=== PATIENT | female | born 1940 | race African-American/Black ===

== ENCOUNTER 2017-02-13 11:37 | Emergency (ER) | payer OTHER ==
[~2017-02-13] VITALS: Ht 162.6 cm; Wt 74.8 kg
[~2017-02-13 11:37] MED LIST: CYMBALTA30 MG PO; MIRALAX17 GM PO; NEURONTIN 300300 M1 PO; NORCO 5-325 TA1 EACH PO; NORVASC2.5 MG PO; PRILOSEC 10MG C10 M1 PO; TOPROL XL100 MG PO; TOPROL XL25 MG PO; VITAMIN D400 UNIT PO; VITAMINC500 PO
[2017-02-13 12:52] LABS: URINE BILIRUBIN NEGATIVE (Negative); URINE BLOOD 2+ (Negative); URINE COLOR YELLOW; URINE GLUCOSE-RANDOM* NEGATIVE (Negative); URINE KETONES 1+ (Negative); URINE LEUKOCYTES-REFLEX NEGATIVE (Negative); URINE PROTEIN (DIPSTICK) TRACE (Negative); URINE UROBILINOGEN 0.2 E.U./dl (0.2-1.0)
[2017-02-13 13:01] LABS: SQUAMOUS 4-10 Moderate /LPF (0-3)
[2017-02-13 13:02] LABS: CASTS None Seen /LPF (None Seen); CRYSTALS None Seen /LPF (None Seen); URINE RBC 0-2 Rare /HPF (0-2); URINE WBC-REFLEX 0-5 Rare /HPF (0-5)
[2017-02-13 14:00] LABS: HEMATOCRIT 37.5 % (37.0-47.0); HEMOGLOBIN 12.5 gm/dL (12.0-15.0); MCH 28.2 pg (26.0-34.0); MCHC 33.4 g/dL (28.0-37.0); MCV 84.3 fL (80.0-100.0); PLATELET COUNT 147 thou/uL (150-400); RBC 4.44 mil/uL (4.20-5.00); RDW 14.1 % (10.5-14.5)
[2017-02-13 14:01] LABS: MANUAL DIFF YES
[2017-02-13 14:13] LABS: ALBUMIN 3.2 g/dL (3.4-5.0); CALCIUM 8.8 mg/dL (8.5-10.1); CREATININE 1.1 mg/dL (0.6-1.0); POTASSIUM 3.4 mmol/L (3.5-5.1); TOTAL BILIRUBIN 0.8 mg/dL (<0.1-1.0); TOTAL PROTEIN 7.8 g/dL (6.4-8.2)
[2017-02-13 14:23] LABS: ABSOLUTE NEUTROPHILS 9.6 thou/uL (1.4-8.2); TOTAL CELL COUNT 100
[2017-02-13] MEDS ORDERED: SENOKOT-S1 TA1 PO (14:33)
[2017-02-13] MEDS ORDERED: KEFLEX500 MG PO (14:47)
== END 2017-02-13 15:12 ==
LOC: ER 11:37
PROVIDERS: Physician Assistant
DX: B34.9 Viral infection, unspecified (principal); N39.0 Urinary tract infection, site not specified; I10 Essential (primary) hypertension; E78.5 Hyperlipidemia, unspecified; Z90.710 Acquired absence of both cervix and uterus; Z90.49 Acquired absence of other specified parts of digestive tract; Z98.890 Other specified postprocedural states; Z88.5 Allergy status to narcotic agent; F17.210 Nicotine dependence, cigarettes, uncomplicated

== ENCOUNTER 2017-06-25 15:05 | Emergency (ER) | payer OTHER ==
[~2017-06-25] VITALS: Ht 165.1 cm; Wt 70.3 kg
[~2017-06-25 15:05] MED LIST changes: +KEFLEX500 MG PO; +SENOKOT-S1 TA1 PO
[2017-06-25] MEDS ORDERED: ZYRTEC10 M2 PO (15:52)
[2017-06-25] MEDS ORDERED: PREDNISONE 20 M20 MG PO (15:52)
== END 2017-06-25 16:22 | disposition home or self-care (01) ==
LOC: ER 15:05
DX: S00.86XA Insect bite (nonvenomous) of other part of head, initial encounter (principal); S60.561A Insect bite (nonvenomous) of right hand, initial encounter; S60.562A Insect bite (nonvenomous) of left hand, initial encounter; I10 Essential (primary) hypertension; E78.00 Pure hypercholesterolemia, unspecified; Z90.49 Acquired absence of other specified parts of digestive tract; Z90.710 Acquired absence of both cervix and uterus; Z98.890 Other specified postprocedural states; Z87.891 Personal history of nicotine dependence; Z88.5 Allergy status to narcotic agent; W57.XXXA Bitten or stung by nonvenomous insect and other nonvenomous arthropods, initial encounter; Y93.89 Activity, other specified; Y92.89 Other specified places as the place of occurrence of the external cause; Y99.8 Other external cause status

== ENCOUNTER 2019-06-28 12:12 | Inpatient (IN) | payer OTHER ==
[~2019-06-28] VITALS: Ht 162.6 cm; Wt 75.7 kg
[~2019-06-28 12:12] MED LIST changes: +AZITHROMYCIN 2250 MG PO; +NORCO 10-325 T1 EACH; +PREDNISONE 20 M20 MG PO; +ZYRTEC10 M2 PO
[2019-06-28] MEDS ORDERED: PREMARIN30 GM TOP (14:29)
[2019-06-28] MEDS ORDERED: MACROBID 100 M100 M2 PO (14:38)
[2019-06-28 15:30] VITALS: BP 130/59
[2019-06-28 18:34] LABS: HEMATOCRIT 35.8 % (37.0-47.0); MCH 28.8 pg (26.0-34.0); MCHC 33.5 g/dL (28.0-37.0); MCV 85.9 fL (80.0-100.0); RBC 4.17 mil/uL (4.20-5.00); RDW 14.5 % (10.5-14.5); WBC 9.6 thou/uL (4.0-11.0)
[2019-06-28 18:44] LABS: CALCIUM 9.2 mg/dL (8.5-10.1); POTASSIUM 3.6 mmol/L (3.5-5.1)
--- NOTE | 2019-06-28 19:38 | NUR ---
PT RECEIVED DIRECT FROM HOME TO 427 AT 1315. ORDERS RECEIVED FROM DR. FARRAR. DR. DONOVAN CONSULTED FOR RECURRING ECOLI UTI'S. PT EATING AND DRINKING WELL. NO C/O PAIN. AWARE NEED UA MIDSTREAM. IV TEAM TO INSERT IV PT DIFFICULT STICK.
[2019-06-28 19:42] VITALS: BP 132/71
[2019-06-28 21:27] LABS: URINE BILIRUBIN NEGATIVE (Negative); URINE BLOOD TRACE (Negative); URINE CLARITY CLEAR; URINE COLOR YELLOW; URINE GLUCOSE-RANDOM* NEGATIVE (Negative); URINE KETONES NEGATIVE (Negative); URINE LEUKOCYTES-REFLEX NEGATIVE (Negative); URINE NITRITE-REFLEX NEGATIVE (Negative); URINE PROTEIN (DIPSTICK) NEGATIVE (Negative); URINE SPECIFIC GRAVITY <= 1.005 (1.005-1.035); URINE UROBILINOGEN 0.2 E.U./dl (0.2-1.0)
[2019-06-29 00:01] VITALS: BP 111/54
--- NOTE | 2019-06-29 02:34 | NUR ---
ASSUMED CARE OF PT @1900 PT ASSESSED AT START OF SHIFT. DENIES PAIN, N/V. A&OX4 UP AD MIHIR TO THE BATHROOM. UA COLLECTED AND SPICEMEN SENT TO THE LAB. IV IN LFT FOREARM INTACT AND ABX INFUSING. MEDS GIVEN AND WILL CONTINUE WITH POC TILL EOS
[2019-06-29 03:46] VITALS: BP 100/44
[2019-06-29 07:19] VITALS: BP 111/59
[2019-06-29 11:19] LABS: DIRECT BILIRUBIN < 0.1 mg/dL (<0.1-0.3); SGOT 17 U/L (15-37); SGPT 17 U/L (30-65); TOTAL BILIRUBIN 0.3 mg/dL (<0.1-1.0); TOTAL PROTEIN 7.3 g/dL (6.4-8.2)
--- NOTE | 2019-06-29 14:18 | NUR ---
ASSESSMENT-PT LIVES AT HOME WITH HER . BOTH ARE INDEPENDENT OF ADLS AND AMBULATION AND BOTH DRIVE. PT HAS A DTR IN THE AREA FOR SUPPORT WELL. PT DENIES ANY CONCERNS RELATED TO DC. LAUNDRY IS LOCATED DOWN [address]. IN GOOD HEALTH AND ABLE TO ASSIST PT AT HOME. FOLLOWING TO ASSIST WITH DC PLANNING.
[2019-06-29 16:21] VITALS: BP 134/84
[2019-06-29 19:57] VITALS: BP 132/82
--- NOTE | 2019-06-29 20:12 | NUR ---
ASSUMED CARE OF PATIENT AT 0715, PATIENT ALERT AND ORIENTED X 4. PATIENT UP AD MIHIR. PATIENT C/O PAIN WITH BACK AREA, RECEIVED HYDROCODONE 1 TABLETS, WITH GOOD RELIEF. PATIENT HAS LEFT FOREARM IV, RECEIVED 1 I IV ANTIBIOTIC THIS SHIFT. PATIENT RECEIVED RENAL US AND CXR DUE TO COUGH. SCD'S APPLIED. WILL CONTINUE TO MONITOR.
--- NOTE | 2019-06-29 20:16 | NUR ---
PATIENT ADMITTED FRO OR, ABDOMINAL HYSTERECTOMY, OVARIES REMOVED, LYSIS OF ADHESIONS. C/O PAIN WITH LOWER ABDOMEN AREA AND VAGINA. DILAUDID 1 MG IV GIVEN X 1 THIS SHIFT. LEE CATHETER IN PLACE AND C/O PRESSURE FEELING, DR NOYOLA NOT WANTING D/C UNTIL IN AM. CLEAR LIQUID DIET, BUT PATIENT REFUSED ONLY ANTED WATER. PATIENT HAS LEFT FOREARM IV IN PLACE. POST OP VITALS DONE, HR-BRADYCARDIA SINCE SURGERY. IV ANTIBIOTICS GIVEN IN OR. WILL CONTINUE TO MONITOR. ADMISSION DUNE EXCEPT CAREPLAN, NIKKY/RN WILL DO CAREPLAN. WILL CONTINUE TO MONITOR.
--- NOTE | 2019-06-30 05:25 | NUR ---
ASSUMED CARE OF PT @1900 PT ASSESSED AT START OF SHIFT DENIES PAIN. EVENING MEDS GIVEN AND ABX INFUSING. UP AD MIHIR TO THE BATHROOM. CALL LIGHT IN PLACE AND WILL CONTINUE POC TILL EOS.
[2019-06-30 08:28] VITALS: BP 117/77
--- NOTE | 2019-06-30 11:59 | H ---
[facility] [place] [address] HISTORY AND PHYSICAL Name: EMMANUEL MOTA Room #: 427-P ADM IN M.R.#: [id number] Admission: 06/28/19 Attend Phys: Mai Farris Discharge: Date of : 42 Report #: [id number] THIS REPORT FOR: //name// CC: Venkatesh Mancuso Lia DATE OF SERVICE: 06/28/2019 CHIEF COMPLAINT: Weakness. HISTORY OF PRESENT ILLNESS: The patient is a 79-year-old female who was admitted through the office with a report of recent urinary tract infection. She has gradually grown weak with some loss of appetite over the last several days. Urinalysis and culture through the office have revealed resistant E. coli. She has failed oral antibiotics due to the resistance pattern and has been admitted for IV antibiotic therapy. PAST MEDICAL HISTORY: Hypertension, chronic back pain, arthritis. PAST SURGICAL HISTORY: None. FAMILY HISTORY: Noncontributory. SOCIAL HISTORY: She is , lives at home. No chronic alcohol or tobacco use. ALLERGIES: CODEINE. MEDICATIONS: Seroquel, Protonix, Norvasc, metoprolol, Claritin, hydrocodone, gabapentin, duloxetine, vitamin D, Premarin vaginal cream. REVIEW OF SYSTEMS: Denies headache, chest pain, shortness of breath, abdominal pain, nausea, vomiting, diarrhea, constipation, dysuria, syncope. OBJECTIVE: VITAL SIGNS: T-max was 37.6, pulse 86, respirations 18, blood pressure 111/59, O2 sat 90-93% on room air. GENERAL: She is awake and alert, in no distress. LUNGS: Clear. HEART: Regular. ABDOMEN: Soft, normoactive bowel sounds. EXTREMITIES: No edema. NEUROLOGIC: Intact and unremarkable. LABORATORY DATA: Urinalysis had trace blood. White count was 9.6. Chemistry unremarkable. Albumin was 3. [facility] [address] [place] [address] HISTORY AND PHYSICAL Name: EMMANUEL MOTA Room #: 427-P [facility]#: [id number] Admission: 06/28/19 Attend Phys: Mai Farris Discharge: Date of : 42 Report #: [id number] ASSESSMENT: 1. Complicated urinary tract infection with resistant Escherichia coli. 2. Hypertension. 3. Osteoarthritis. 4. Mild protein-calorie malnutrition. PLAN: IV antibiotics will continue, pending repeat culture. Dr. Yao Weaver has assessed her and reviewed the outside the hospital data for continued treatment plan. Renal ultrasound to rule out structural lesion and urinary residuals has been ordered. <ELECTRONICALLY SIGNED> By: Kaden Ring MD 06/30/19 1159 [id number] 1227 Kaden Ring MD /nt
[2019-06-30 14:01] VITALS: BP 117/77
--- NOTE | 2019-06-30 19:39 | HC ---
[facility] [place] [address] CONSULTATION Name: EMMANUEL MOTA Room #: 427-P [facility] M.R.#: [id number] Admission: 06/28/19 Attend Phys: Mai Farris Discharge: 06/30/19 Date of : 42 Report #: [id number] THIS REPORT FOR: //name// CC: Venkatesh Mancuso Lia DATE OF SERVICE: 06/29/2019 INFECTIOUS DISEASES CONSULTATION REASON FOR CONSULTATION: I was asked to evaluate concerning recurrent cystitis and resistant gram-negative infection. HISTORY OF PRESENT ILLNESS: The patient is a 79-year-old with history of recurrent cystitis. She has been on multiple antibiotics over the last several months without improvement. She denies any dysuria, frequency, hematuria, pelvic pain or flank pain. She has had intermittent low-grade fever up to 99 degrees. No chills or sweats. Her main complaint has been generalized weakness with diffuse pain. She has episodes of cough with brown sputum production without hemoptysis or pleuritis. She has occasional palpitations. She reports abdominal discomfort frequently with some reflux symptoms along with intermittent diarrhea. She will occasionally have vomiting episodes. She has had no blood in her stool. She has previously been treated for uterine prolapse. She now has post-hysterectomy. She has had no vaginal prolapse. She has had no rectal prolapse. She has been seen by Urology and Gynecology without further recommendations. She could not give me the specific details of their evaluation. She reports intermittent episodes of knee swelling. No rashes or decubiti noted. Does have occasional ankle edema. She is a previous smoker, having quit approximately 10 years ago. She notices chronic low back pain. She could not describe specific radicular features with consistency. She was a bit vague on the description of her back pain. No report of diabetes. REVIEW OF SYSTEMS: Full 10-point review of systems was negative other than what is described above. PAST MEDICAL HISTORY: Peripheral neuropathy, osteoarthritis, hemorrhoids, hysterectomy, hemorrhoidectomy, cholecystectomy, repair of prolapsed uterus. ALLERGIES: CODEINE and she reports PENICILLIN with nausea. MEDICATIONS: As noted on her MAR, now on meropenem. She could not recall the oral antibiotics she was on leading up to this hospital stay. FAMILY HISTORY: Noncontributory other than coronary artery disease. SOCIAL HISTORY: She is , has 2 children. Past smoker, no significant [address] [address] CONSULTATION Name: EMMANUEL MOTA Room #: 427-P [facility] IN M.R.#: [id number] Admission: 06/28/19 Attend Phys: Mai Farris Discharge: 06/30/19 Date of : 42 Report #: [id number] alcohol intake. 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 PHYSICAL EXAMINATION: GENERAL: She is alert and cooperative. She was ambulatory. She was standing up in her room, in no distress. VITAL SIGNS: Afebrile and hemodynamically stable. SKIN: Without rash or decubitus. No palpable adenopathy. HEENT: Eyes without scleral icterus. Pupils are equal, round and reactive to light. Mouth without mucositis. She had upper dentures. NECK: Supple, with no thyromegaly or mass. LUNGS: Clear, without adventitial sounds. She did have very loose bronchitic type cough. HEART: Regular, without murmur, gallop or rub. ABDOMEN: Soft, nontender. No hepatosplenomegaly or mass appreciated. Mild obesity. GENITORECTAL: Not performed. EXTREMITIES: Without peripheral edema. No clubbing or cyanosis. She had mild changes of degenerative arthritis. NEUROLOGIC: Cranial nerves intact. Strength in upper and lower extremities was normal. Sensation intact. Mood was appropriate normal. LABORATORY STUDIES: Urinalysis was unremarkable. Sodium 140, potassium 3.6, bicarbonate 29, creatinine 1. Hemoglobin 12, WBC 9.6 and platelet count 202,000. IMPRESSION: A 79-year-old with generalized fatigue and sense of weakness with multisystem complaints. In addition, she has had recurring episodes of cystitis, now drug-resistant organisms. She has been seen by Urology and Gynecology. She does report a history of atrophic vaginitis that is now treated with topical estrogen. Unclear if she has emptying issues. I doubt this explains all of her generalized weakness and disability. We would also check for other inflammatory condition. Unclear as to her workup in the outpatient setting. She does have evidence of bronchitis. RECOMMENDATIONS: We will check chest x-ray, sputum culture, inflammatory markers. Check postvoid residual to ensure she is emptying her bladder well. Continue with hormonal vaginal cream. We will continue her current antibiotic program pending further studies. <ELECTRONICALLY SIGNED> By: Yao Weaver MD 06/30/19 [id number] Yao Weaver MD /nt
[2019-07-01 16:06] LABS: ANA INTERPRETATION Negative (Negative)
== END 2019-06-30 17:31 | disposition home or self-care (01) | DRG 690 ==
LOC: 4E 12:12 → ENTRNSPT 06-30 14:15 → EDTRNSPTSTS 06-30 14:18 → 4E 06-30 17:31
PROVIDERS: Specialist; ADMIT Internal Medicine
DX: N30.90 Cystitis, unspecified without hematuria (principal); E44.1 Mild protein-calorie malnutrition; B34.9 Viral infection, unspecified; M19.90 Unspecified osteoarthritis, unspecified site; I10 Essential (primary) hypertension; J40 Bronchitis, not specified as acute or chronic; G62.9 Polyneuropathy, unspecified; G89.29 Other chronic pain; M54.9 Dorsalgia, unspecified; Z90.49 Acquired absence of other specified parts of digestive tract; Z90.710 Acquired absence of both cervix and uterus; Z88.5 Allergy status to narcotic agent; Z88.0 Allergy status to penicillin; Z82.49 Family history of ischemic heart disease and other diseases of the circulatory system; Z68.28 Body mass index [BMI] 28.0-28.9, adult
CPT/HCPCS: 10783

== ENCOUNTER → 2020-10-02 | Outpatient (CLI) | payer OTHER ==
[~2020-10-02] MED LIST changes: +MACROBID 100 M100 M2 PO; +PREMARIN30 GM TOP
== END ==
LOC: MRI 07:23
DX: M47.816 Spondylosis without myelopathy or radiculopathy, lumbar region (principal); M51.37 Other intervertebral disc degeneration, lumbosacral region; M54.41 Lumbago with sciatica, right side; M54.42 Lumbago with sciatica, left side; G89.29 Other chronic pain

== ENCOUNTER 2021-10-18 13:11 | Emergency (ER) | payer OTHER ==
[~2021-10-18] VITALS: Ht 162.6 cm; Wt 74.8 kg
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
[2021-10-18 14:54] LABS: ABSOLUTE NEUTROPHILS 7.7 thou/uL (1.4-8.2); BASOPHILS 0.5 % (0.0-2.0); EOSINOPHILS 0.8 % (0.0-3.0); HEMOGLOBIN 12.2 gm/dL (12.0-15.0); MCH 29.9 pg (26.0-34.0); MONOCYTES 7.6 % (1.0-8.0); PLATELET COUNT 228 thou/uL (150-400); POLYS 80.1 % (36.0-66.0); RBC 4.09 mil/uL (4.20-5.00); RDW 15.1 % (10.5-14.5); WBC 9.6 thou/uL (4.0-11.0)
--- NOTE | 2021-10-18 14:56 | EKG ---
[place] [address] [facility] [place] [address] ELECTROCARDIOGRAM REPORT Name: EMMANUEL MOTA Room #: REG Clarissa#: [id number] Admission: 10/18/21 Attend Phys: Discharge: Date of : 41 Report #: [id number] [facility] ED Test Date: 2021-10-18 Test Time: 13:22:41 Pat Name: EMMANUEL MOTA Department: Room: Gender: F Federal Aid Coordinator: Ailyn ROMERO : 1940 Requested By: Elia Guerrero Order Number: [id number] MD: Behzad Huston Measurements Intervals [place] Rate: 85 P: 12 WV: 190 QRS: -23 QRSD: 91 T: 50 QT: 351 QTc: 418 Interpretive Statements Sinus rhythm Probable left atrial enlargement Borderline left axis deviation Minimal ST depression Compared to ECG 07/18/2018 18:28:10 No significant change Electronically Signed On 10-18-2021 14:56:40 SHELL PRESS OPERATOR by Behzad Huston [email or web address] <ELECTRONICALLY SIGNED> By: Behzad Huston MD, [facility] 10/18/21 1456 1322 1322 Behzad Huston MD, FACC /EPI
[2021-10-18 15:04] LABS: CALCIUM 8.9 mg/dL (8.5-10.1); CREATININE 0.9 mg/dL (0.6-1.0); POTASSIUM 3.4 mmol/L (3.5-5.1)
[2021-10-18 15:14] LABS: ALBUMIN 3.3 g/dL (3.4-5.0); TOTAL BILIRUBIN 0.4 mg/dL (0.2-1.0); TOTAL PROTEIN 7.3 g/dL (6.4-8.2)
[2021-10-18] MEDS ORDERED: CYCLOBENZAPRINE5 MG PO (16:45)
[2021-10-18] MEDS ORDERED: MOBIC7.5 MG PO (16:45)
[2021-10-18 17:15] VITALS: BP 143/78
== END 2021-10-18 17:15 | disposition home or self-care (01) ==
LOC: ER 13:11
PROVIDERS: Emergency Medicine
DX: S20.212A Contusion of left front wall of thorax, initial encounter (principal); M54.6 Pain in thoracic spine; I10 Essential (primary) hypertension; E78.00 Pure hypercholesterolemia, unspecified; G62.9 Polyneuropathy, unspecified; Z87.891 Personal history of nicotine dependence; Z88.5 Allergy status to narcotic agent; Z79.899 Other long term (current) drug therapy; Z90.710 Acquired absence of both cervix and uterus; V49.59XA Passenger injured in collision with other motor vehicles in traffic accident, initial encounter; Y93.89 Activity, other specified; Y92.413 State road as the place of occurrence of the external cause; Y99.9 Unspecified external cause status